=== PATIENT | male | born 1940 | race Caucasian/White ===

== ENCOUNTER 2021-09-07 13:56 | Outpatient (AMB) | payer MEDICARE, OTHER, SELFPAY ==
[2021-09-07 14:03] VITALS: BP 179/83; PULSE 99; TEMP 36.1
--- NOTE | 2021-09-07 14:03 | U.OPVIS1 ---
Intake Vital Signs 09/07/21 14:03 Weight 85.842 kg BP 179/83 H Blood Pressure Location Left Upper Arm Position Sitting Pulse 99 Pulse Source Monitor Temp 97 F Temp Source Temporal Artery Scan Intake Visit Reasons: Uro Uroflow and Bladder Scan [employer] Required: No Is patient in pain?: No Allergy Allergies tolmetin Allergy (Severe, Verified 09/07/21 14:04) RASH,THROAT CLOSES ibuprofen Allergy (Unknown, Verified 09/07/21 14:04) Home Meds Medication Reconciliation cyanocobalamin (vitamin B-12) 1,000 mcg tablet 1,000 mcg PO QDAY #0 tab 05/18/15 [History Confirmed 09/07/21] budesonide 90 mcg/actuation breath activated powder inhaler (Pulmicort Flexhaler) 1 puff INHALATION BID #0 inh 12/05/16 [History Confirmed 09/07/21] aspirin 81 mg chewable tablet 81 mg PO QDAY #30 tab 07/12/18 [Rx Confirmed 09/07/21] silodosin 8 mg capsule (Rapaflo) 8 mg PO QDAY 08/23/21 [History Confirmed 09/07/21] Office Procedures Uro Bladder Scan and Uro Flow My Supervising Practitioner for this visit is:: Whitney Dhillon Bladder Scan and Uro Flow Completed?: Yes Diagnosis: BPH WITH LUTS N40.1 SLOW STREAM R39.12 Uro Level of Care Nursing/Assessment/Reassessment Patient Status: Established Patient Nursing Assessment/Reassessment: Update [facility] data in EMR, Vital Signs and Medication Reconciliation Coordination of Care: Comp Pt/Fam Ed for care Established Patient Point Assignment: 50 Procedure IM Injection: No Transrectal Ultrasound: No
== END 2021-09-07 14:16 | disposition home or self-care (01) ==
LOC: HODURO 13:56
PROVIDERS: PCP Internal Medicine; Visit Provider Urology

== ENCOUNTER 2021-09-20 08:51 | Outpatient (AMB) | payer MEDICARE, OTHER, SELFPAY ==
[2021-09-20 09:14] VITALS: BP 153/88; PULSE 65; RESP 18; TEMP 36.3; BMI 27.3
--- NOTE | 2021-09-20 09:14 | U.OPVIS1 ---
Intake Vital Signs 09/20/21 09:14 Height 1.78 m Weight 86.296 kg BMI 27.3 BP 153/88 H Blood Pressure Location Right Upper Arm Position Sitting Respiration 18 Pulse 65 Pulse Source Monitor Temp 97.3 F Temp Source Temporal Artery Scan Intake Visit Reasons: Uro Prostate Ultrasound/VACCINATED Allergy Allergies tolmetin Allergy (Severe, Verified 09/20/21 09:15) RASH,THROAT CLOSES ibuprofen Allergy (Unknown, Verified 09/20/21 09:15) Home Meds Medication Reconciliation cyanocobalamin (vitamin B-12) 1,000 mcg tablet 1,000 mcg PO QDAY #0 tab 05/18/15 [History Confirmed 09/20/21] budesonide 90 mcg/actuation breath activated powder inhaler (Pulmicort Flexhaler) 1 puff INHALATION BID #0 inh 12/05/16 [History Confirmed 09/20/21] aspirin 81 mg chewable tablet 81 mg PO QDAY #30 tab 07/12/18 [Rx Confirmed 09/20/21] silodosin 8 mg capsule (Rapaflo) 8 mg PO QDAY 08/23/21 [History Confirmed 09/20/21] Office Procedures Uro Prostate US My Supervising Practitioner for this visit is:: Whitney Dhillon Prostate US: Yes Informed consent given: Yes Consent signed: Yes Time out staff in room: Yes IMMEDIATELY PRIOR TO START OF PROCEDURE: ALL MEMBERS of the procedural team are in attendance and actively involved together in the TIME-OUT and verified as applies to the patient:: Correct Patient Identity, Correct Site, Consent Signed and Accurate, Team Agrees on Procedure, Patient has completed pre-procedure preparations, Fleet Enema, Review of allergies and potential blood loss, Safety Precautions are in place based on patient history, Correct Patient Positioning, Procedural site marked by appropriate provider, Procedural site marking is visible after prep and draping, Relevant images and results are properly labeled and displayed, Reqd blood products, implants, devices and necessary equip available, Specimen container(s) and lab req(s) are available & labeled properly. and H&P, assessments, and other pertinent documents are available Time out verified: Yes Time out date: 09/20/21 Time out time: 09:45 Uro Level of Care Nursing/Assessment/Reassessment Patient Status: Established Patient Nursing Assessment/Reassessment: Update PFSH data in EMR, Vital Signs and Medication Reconciliation Coordination of Care: Comp Pt/Fam Ed for care and Consent,records obtained Miscellaneous Interventions: Phys Asssit w/procedure Established Patient Point Assignment: 80 Procedure IM Injection: No Transrectal Ultrasound: Yes Urology Prostate Ultrasound PSA Density (ng/cc):: 2.59 Prostate Height (mm):: 4.25 Prostate Width (mm):: 5.71 Prostate Length (mm):: 5.41 Prostate volume (cc):: 68.75 Hypoechogenic areas exist which could represent areas of malignancy: Yes Hyperdense schos are seen suggestive of calculi in the capsule: Yes Seminal vesicles:: Normal Prostate median lobe:: Absent Bladder exam:: Normal Documentation images were taken: Yes Visit Diagnosis: BPH with urinary obstruction and LUTS
--- NOTE | 2021-09-21 06:25 | URONOTEN_ITS ---
RE: JAMES MONTOYA : 1940 DATE: 09/20/2021 CHIEF COMPLAINT: This is an 81-year-old gentleman. He has BPH with urinary obstruction and LUTS. He underwent urological workup. His Q-max is 8.2 mL per second. His voided volume is 202 mL and his PVR is 19 mL. He had an ultrasound of the prostate gland done. His prostate gland volume is 68.75. His IPSS score is 20. Quality of life due to symptom is 4. The patient cannot take tamsulosin because of the side effects. He had his blood work done. His BUN is 16, creatinine 0.9, GFR is over 60. PSA on 08/18/2021 is 2.59. The patient is scheduled for a cystoscopic examination to rule out median lobe enlargement. IMPRESSION: Benign prostatic hypertrophy with urinary obstruction and lower urinary tract symptoms. Various options were discussed with the patient in great detail. This included TURP of the prostate gland, microwave thermotherapy, aquablation, prostatic urethral lift. I went over the procedure and complications of each with the patient in great detail. The patient elected to go for placement of prostatic urethral lift. I provided him with the literature. I explained to him there is 60% chances with the successful outcome of the procedure. The patient understood it very well and he will be scheduled for the same. DT: 10:46:13 TT: 11:26:00 Ref: [id number] - TID: [id number]
== END 2021-09-20 14:08 | disposition home or self-care (01) ==
LOC: HODURO 08:51
PROVIDERS: PCP Internal Medicine; Visit Provider Urology

== ENCOUNTER → 2024-10-23 | Outpatient (CLI) | payer MEDICARE, SELFPAY ==
[2024-10-23 10:39] LABS: Prostate Specific Antigen 3.46 ng/mL (0-4.00)
== END | disposition home or self-care (01) ==
LOC: COPL 09:23
PROVIDERS: PCP Internal Medicine; Referring Provider Urology; Visit Provider Urology
DX: N40.1 Benign prostatic hyperplasia with lower urinary tract symptoms (principal)
CPT/HCPCS: 36415; 84153

== ENCOUNTER → 2024-10-27 | Outpatient (BNVA) | payer MEDICARE, SELFPAY | END | disposition home or self-care (01) | PROVIDERS: PCP Internal Medicine; Referring Provider Internal Medicine; Visit Provider Urology | DX: N40.1 Benign prostatic hyperplasia with lower urinary tract symptoms (principal); N13.8 Other obstructive and reflux uropathy; I10 Essential (primary) hypertension; Z86.73 Personal history of transient ischemic attack (TIA), and cerebral infarction without residual deficits; Z96.0 Presence of urogenital implants; Z87.891 Personal history of nicotine dependence; E78.00 Pure hypercholesterolemia, unspecified; K21.9 Gastro-esophageal reflux disease without esophagitis | CPT/HCPCS: 81003; 99212; G0463 ==

== ENCOUNTER → 2025-02-11 | Outpatient (CLI) | payer MEDICARE, SELFPAY ==
--- NOTE | 2025-02-11 13:30 | ECHO_ITS ---
Transthoracic Echo Report Ht (in): 69 Wt (lb): 178 Exam Location: Echo Lab Status: Preadmit News Videotape Editor: Petty Soto Indications: Procedure Performed: BP: / HR: Technical Quality: Technically Difficult Due To Pectus Excavatum and Position of Heart in Chest MEASUREMENTS (Male / Female) Normal Values 2D ECHO LV Diastolic Diameter PLAX 3.9 cm 4.2 - 5.9 / 3.9 - 5.3 cm LV Systolic Diameter PLAX 2.4 cm IVS Diastolic Thickness 2.0 cm 0.6 - 1.0 / 0.6 - 0.9 cm LVPW Diastolic Thickness 1.5 cm 0.6 - 1.0 / 0.6 - 0.9 cm LV Relative Wall Thickness 0.9 LVOT Diameter 1.7 cm LA Volume Index 28.1 cm?/m? 16 - 28 cm?/m? M-MODE AV Cusp Separation MM 2.2 cm DOPPLER AV Peak Velocity 132.0 cm/s AV Peak Gradient 7.0 mmHg AI Peak Velocity 307.0 cm/s AI Peak Gradient 37.7 mmHg AI Pressure Half Time 982.0 ms LVOT Peak Velocity 85.9 cm/s LVOT Peak Gradient 3.0 mmHg AV Area Cont Eq pk 1.5 cm? MV Area PHT 1.7 cm? Mitral E Point Velocity 85.9 cm/s Mitral A Point Velocity 124.0 cm/s Mitral E to A Ratio 0.7 TR Peak Velocity 229.0 cm/s TR Peak Gradient 21.0 mmHg PV Peak Velocity 96.4 cm/s PV Peak Gradient 3.7 mmHg FINDINGS Left Ventricle Normal left ventricular size and systolic function with no obvious regional wall motion abnormalities. Moderate ventricular septal hypertrophy. The ejection fraction is visually estimated at 55 %. Unable to determine diastology due to MAC. Right Ventricle The right ventricle is normal in size. Moderately decreased systolic function. The estimated right ventricular systolic pressure, 21 mmHg. Left Atrium The left atrium is normal by two-dimensional, color flow and Doppler imaging with no structural abnormalities, no thrombus formation present. Right Atrium The right atrium is normal by two-dimensional imaging, color flow and Doppler imaging with no structural abnormalities, no thrombus formation present. Atrial Septum The interatrial septum appears normal with no evidence of a shunt. Aorta The aorta is normal by two-dimensional, color flow and Doppler interrogation. Mitral Valve There is moderate mitral annulus calcification without stenosis. There is trace mitral regurgitation. Aortic Valve The aortic valve leaflets are mildly calcified without stenosis. There is trace aortic regurgitation. Tricuspid Valve The tricuspid valve is normal by two-dimensional, color flow and Doppler interrogation. There is trace tricuspid regurgitation. Pulmonic Valve The pulmonic valve is not well visualized. There is trace pulmonic regurgitation. Vessels The pulmonary artery appears normal. The inferior vena cava pulmonary and hepatic veins are not visualized. Pericardium The pericardium is normal by two-dimensional imaging. There is no significant pericardial effusion. CONCLUSIONS Indications: SOB Normal LV. Moderate LVH. Estimated EF 55%. Normal Size RV. Moderate RV Dysfunction. RVSP 21mmHg. Moderate MAC. Mild MR. Mildly Calcified AOV. Trace AI, TR, PI. No Pericardial Effusion. Dayna Kay (Electronically Signed) Final Date: 11 February 2025 16:30
== END | disposition home or self-care (01) ==
LOC: SDIM 13:10
PROVIDERS: PCP Internal Medicine; Referring Provider Internal Medicine; Visit Provider Internal Medicine
DX: Z01.810 Encounter for preprocedural cardiovascular examination (principal); R06.02 Shortness of breath; I70.0 Atherosclerosis of aorta; I50.810 Right heart failure, unspecified
CPT/HCPCS: 93306